=== PATIENT | female | born 1945 | race Caucasian/White ===

== ENCOUNTER 2021-07-08 12:09 | Emergency (ER) | payer MEDICARE, SELFPAY ==
--- NOTE | ~2021-07-08 | XR_ITS ---
XR_RIBSBI_CR DATE: 07/08/2021 12:45 INDICATION: Fall backwards in shower onto nondisplaced. Bilateral mid back pain. TECHNIQUE: 3 views of right ribs. 3 views of left ribs. COMPARISON: None FINDINGS: There is diffuse osteopenia. No left or right rib fracture is detected. Degenerative spurring and scoliosis of the thoracic and lumbar spine. Surgical clips, right axillary area consistent with right axillary node dissection Surgical clips, right upper quadrant, consistent with cholecystectomy. IMPRESSION: No rib fracture is detected Osteopenia Scoliosis and degenerative change of the thoracic and lumbar spine Reviewed, dictated and finalized at [facility]. Reviewed, dictated and finalized at [facility].
--- NOTE | 2021-07-08 12:13 | ED.BACK ---
HPI - Back Pain/Injury General Chief Complaint: Back Pain/Injury Stated Complaint: Fall Injury/Back Pain Time Seen by Provider: 07/08/21 12:14 Source: patient and RN notes reviewed History of Present Illness HPI Narrative: Patient is a 66-year-old female who presents the urgent care with complaints of back pain due to fall. Patient states that last Friday she got in the shower and slipped hitting her back on the faucet. Patient states that she has had increased pain with deep breathing. Patient has been taking Tylenol for the pain. Denies of hitting her head or any loss of consciousness. No other acute complaints. No acute distress noted. Patient aware of plan of care. Some parts of this dictation were generated by voice recognition software and may contain typographical and/or grammatical inaccuracies. Related Data Home Medications Medication Instructions Recorded Confirmed alprazolam 07/08/21 [id number] #[id number] D3 tablet PO 07/08/21 [ADVANCED Calcium] [id number] tablet 07/08/21 [Calcium Citrate + D with Mag] famotidine 07/08/21 hydrochlorothiazide 07/08/21 paroxetine HCl mg PO 07/08/21 propranolol 07/08/21 rivaroxaban [Xarelto] mg 07/08/21 Allergies Allergy/AdvReac Type Severity Reaction Status Date / Time latex Allergy Intermediate BLISTERS Verified 07/08/21 12:35 levofloxacin Allergy Intermediate LIPS SWELL Verified 07/08/21 12:35 Penicillins Allergy Intermediate HIVES Verified 07/08/21 12:35 Sulfa (Sulfonamide Allergy Intermediate HIVES Verified 07/08/21 12:35 Antibiotics) adhesive Allergy Mild RASH Verified 07/08/21 12:35 Review of Systems Review of Systems: CONSTITUTIONAL: Denies fever, chills, or sweats. EYES: Denies visual changes, redness, or discharge. ENT: Denies rhinorrhea, congestion, sore throat, or otalgia. CARDIOVASCULAR: Denies chest pain, palpitations, or edema. RESPIRATORY: Denies cough or dyspnea. GASTROINTESTINAL: Denies abdominal pain, nausea, vomiting, or diarrhea. GENITOURINARY: Denies dysuria or hematuria. SKIN: Denies rash or itching. MUSCULOSKELETAL: Reports of mid to upper back pain NEUROLOGIC: Denies headache, numbness, or weakness. All other systems reviewed are negative, except as documented in HPI. PMFSH Comments At the time of my signature, I reviewed and agree with the nursing past medical, surgical, social, and family history. There is no relevant family history pertinent to the patient complaint. Exam Narrative: GENERAL: This is a well-nourished, well-developed patient, in no apparent distress. HEAD: normocephalic, atraumatic. EYES: PERRL. Sclera clear/white. Vision is grossly intact. EARS: External ears normal NOSE: External nose normal with no obvious nasal discharge, nares without redness, no rhinorrhea. THROAT: Mucous membranes moist NECK: Neck supple CARDIOVASCULAR: Regular rate and rhythm without murmurs, gallops, or rubs. RESPIRATORY: Clear to auscultation. Breath sounds equal bilaterally. No wheezes, rales, or rhonchi. SKIN: warm, intact with no suspicious lesions or rash, good texture and turgor. NEURO: awake, alert, and oriented to person, place and time. There were no obvious focal neurologic abnormalities. EXTREMITIES: No clubbing, cyanosis, or edema. BACK: Mild to moderate right and left thoracic tenderness with notable bruising. No crepitus or step-off to spine. Course Course Level of Care: Express Care Visit Vital Signs Vital signs: Vital Signs Temperature 98.5 F 07/08/21 12:20 Pulse Rate 60 07/08/21 12:20 Respiratory Rate 07/08/21 12:20 Blood Pressure 125/69 07/08/21 12:20 Pulse Oximetry 98 07/08/21 12:20 Temperature 98.5 F 07/08/21 12:20 Pulse Rate 60 07/08/21 12:20 Respiratory Rate 20 07/08/21 12:20 Blood Pressure 125/69 07/08/21 12:20 Pulse Oximetry 98 07/08/21 12:20 Reviewed MDM - Back Pain/Injury MDM Narrative Medical decision making narrative:
[2021-07-08 12:20] VITALS: BP 125/69; PULSE 60; RESP 20; TEMP 36.9; O2SAT 98
== END 2021-07-08 13:15 | disposition home or self-care (01) ==
PROVIDERS: Emergency Provider Nurse Practitioner Family
DX: S20.229A Contusion of unspecified back wall of thorax, initial encounter (principal); W18.2XXA Fall in (into) shower or empty bathtub, initial encounter; I10 Essential (primary) hypertension; Z86.2 Personal history of diseases of the blood and blood-forming organs and certain disorders involving the immune mechanism
CPT/HCPCS: 71110; 99203; G0463

== ENCOUNTER 2023-07-09 18:55 | Emergency (ER) | payer MEDICARE, SELFPAY ==
[2023-07-09 19:05] VITALS: BP 149/70; PULSE 101; RESP 18; TEMP 36.6; O2SAT 97
--- NOTE | 2023-07-09 19:18 | ED.WOUNDLAC ---
HPI - Wound/Laceration General Chief Complaint: Wound/Laceration Stated Complaint: Skin Sore/Left Leg Source: patient Mode of arrival: ambulatory Limitations: no limitations History of Present Illness HPI narrative: 77-year-old female presented for complaint of ruptured blister to the back of the left leg. First noticed the filled blister about 4 days ago, it ruptured and has scabbed over. Denies pain, redness, swelling, or drainage at this time. States dtr wanted her to have it checked. Denies any other skin complaints. Related Data Home Medications Medication Instructions Recorded Confirmed alprazolam 0.25 mg tablet 0.25 mg PO TID PRN Anxiety 07/08/21 07/09/23 famotidine 20 mg tablet 20 mg PO DAILY 07/08/21 07/09/23 hydrochlorothiazide 12.5 mg tablet 12.5 mg PO DAILY 07/08/21 07/09/23 paroxetine HCl 10 mg tablet 10 mg PO DAILY 07/08/21 07/09/23 propranolol 80 mg tablet 80 mg PO DAILY 07/08/21 07/09/23 rivaroxaban 20 mg tablet (Xarelto) 20 mg PO DAILY 07/08/21 07/09/23 calcium citrate 500 mg-vitamin D3 1 tablet PO DAILY 07/09/23 07/09/23 12.5 mcg (500 unit) chewable tablet potassium 99 mg tablet 99 mg PO DAILY 07/09/23 07/09/23 Allergies Allergy/AdvReac Type Severity Reaction Status Date / Time latex Allergy Intermediate BLISTERS Verified 07/09/23 19:25 levofloxacin Allergy Intermediate LIPS SWELL Verified 07/09/23 19:25 Penicillins Allergy Intermediate HIVES Verified 07/09/23 19:25 Sulfa (Sulfonamide Allergy Intermediate HIVES Verified 07/09/23 19:25 Antibiotics) adhesive Allergy Mild RASH Verified 07/09/23 19:25 Review of Systems Review of Systems: CONSTITUTIONAL: Denies body aches, fever, chills, or sweats. CARDIOVASCULAR: Denies chest pain, palpitations, or edema. RESPIRATORY: Denies cough or dyspnea. GASTROINTESTINAL: Denies abdominal pain, nausea, vomiting, or diarrhea. SKIN: reports skin blister to leg MUSCULOSKELETAL: Denies back pain, joint pain, or myalgia. NEUROLOGIC: Denies headache, numbness, tingling, or weakness. PMFSH Comments At time of signature, I have reviewed and agree with nursing past medical, surgical, social and family history unless otherwise noted. Please see nursing chart for further information. There is no relevant family history pertinent to the presenting complaint Exam Narrative: GENERAL: Well-appearing EYES: conjunctivae clear, and EOMI. ENT: Mucous membranes moist. Oropharynx without edema, erythema or lesions. NECK: Supple. No lymphadenopathy CHEST: Clear to auscultation. HEART: Regular rate and rhythm. SKIN: Warm, dry. posterior left lower leg, 2.5x3cm diameter scabbed center of ruptured blister. No surrounding erythema/induration, tenderness, warmth or drainage. NEURO: Alert and oriented x3. Course Course Emergency Course: Patient is aware of diagnosis, understands and agrees to treatment plan. Anticipatory guidance given. Patient agrees to follow-up as directed and is aware of reasons to seek care at the emergency department. Portions of this record may have been created with voice recognition software Level of Care: Express Care Visit Vital Signs Vital signs: Vital Signs Temperature 97.9 F 07/09/23 19:05 Pulse Rate 101 H 07/09/23 19:05 Respiratory Rate 18 07/09/23 19:05 Blood Pressure 149/70 H 07/09/23 19:05 Pulse Oximetry 97 07/09/23 19:05 Oxygen Delivery Room Air 07/09/23 19:05 Temperature 97.9 F 07/09/23 19:05 Pulse Rate 101 H 07/09/23 19:05 Respiratory Rate 18 07/09/23 19:05 Blood Pressure 149/70 H 07/09/23 19:05 Pulse Oximetry 97 07/09/23 19:05 Oxygen Delivery Room Air 07/09/23 19:05 Reviewed MDM - Wound/Laceration MDM Narrative Medical decision making narrative: Discussed physical exam findings. No apparent infection. Will monitor. Dried skin from blister removed per pt request. Advised supportive measures and signs/symptoms to go to the ER. Pt is appropriate for outpt treatmen
== END 2023-07-09 19:30 | disposition home or self-care (01) ==
PROVIDERS: Emergency Provider Nurse Practitioner Family
DX: S80.822A Blister (nonthermal), left lower leg, initial encounter (principal); X58.XXXA Exposure to other specified factors, initial encounter; I10 Essential (primary) hypertension; K21.9 Gastro-esophageal reflux disease without esophagitis; Z86.718 Personal history of other venous thrombosis and embolism; Z86.2 Personal history of diseases of the blood and blood-forming organs and certain disorders involving the immune mechanism; Z85.038 Personal history of other malignant neoplasm of large intestine
CPT/HCPCS: 99212; G0463

== ENCOUNTER 2023-07-24 17:31 | Emergency (ER) | payer MEDICARE, SELFPAY ==
--- NOTE | 2023-07-24 17:39 | ED.GENADULT ---
HPI - General Adult General Stated complaint: Fall Injury/Head Injury Time Seen by Provider: 07/24/23 17:39 Source: patient, RN notes reviewed and old records reviewed Mode of arrival: ambulatory Limitations: no limitations History of Present Illness HPI narrative: 77-year-old female to Express Care status post fall with head trauma. Patient states that she had her grandson at an ice cream place this afternoon and that as they were leaving she missed the step down into the parking lot, causing her to fall face first onto concrete. Patient denies LOC, dizziness, weakness, visual changes, hearing changes, nausea, vomiting, neck pain. Patient endorses use of Xarelto for history of multiple clots. Patient reports that she fell at around 4:00 p.m. and that the staff at the ice cream place gave her ice and spoke with her for approximately 1 hour to make sure that she was okay prior to her leaving. patient reports that she broke her glasses during the fall. Patient states she was able to drive here without difficulty. Large, tennis ball sized hematoma noted to left upper forehead. Patient alert and oriented x3, neuro intact, no signs of acute distress. Related Data Home Medications Medication Instructions Recorded Confirmed alprazolam 0.25 mg tablet 0.25 mg PO TID PRN Anxiety 07/08/21 07/24/23 famotidine 20 mg tablet 20 mg PO DAILY 07/08/21 07/24/23 hydrochlorothiazide 12.5 mg tablet 12.5 mg PO DAILY 07/08/21 07/24/23 paroxetine HCl 10 mg tablet 10 mg PO DAILY 07/08/21 07/24/23 propranolol 80 mg tablet 80 mg PO DAILY 07/08/21 07/24/23 rivaroxaban 20 mg tablet (Xarelto) 20 mg PO DAILY 07/08/21 07/24/23 calcium citrate 500 mg-vitamin D3 1 tablet PO DAILY 07/09/23 07/24/23 12.5 mcg (500 unit) chewable tablet potassium 99 mg tablet 99 mg PO DAILY 07/09/23 07/24/23 Allergies Allergy/AdvReac Type Severity Reaction Status Date / Time latex Allergy Intermediate BLISTERS Verified 07/09/23 19:25 levofloxacin Allergy Intermediate LIPS SWELL Verified 07/09/23 19:25 Penicillins Allergy Intermediate HIVES Verified 07/09/23 19:25 Sulfa (Sulfonamide Allergy Intermediate HIVES Verified 07/09/23 19:25 Antibiotics) adhesive Allergy Mild RASH Verified 07/09/23 19:25 Review of Systems Review of Systems: All systems reviewed & are unremarkable except as noted in HPI and below Constitutional: Constitutional: Reports as per HPI, Denies fatigue and Denies weakness Eyes: Eyes: Reports as per HPI, Denies blind spots, Denies change in vision, Denies diplopia, Denies loss of peripheral vision, Denies seeing flashes, Denies spots in vision and Denies tunnel vision ENT: Reports as per HPI, Reports Normal hearing present and Denies neck pain Cardiovascular: Cardiovascular: Reports no additional cardiovascular complaints, Denies chest pain and Denies dyspnea Respiratory: Respiratory: Reports no additional respiratory complaints, Denies cough and Denies dyspnea Musculoskeletal: Musculoskeletal: Reports as per HPI, Denies abnormal gait, Denies muscle weakness, Denies neck pain, Denies numbness, Denies stiffness and Denies tingling Integumentary/Breasts: Skin/Breast: Reports system reviewed and no additional complaints, except as docu and Reports wounds Comments: tennis-ball sized hematoma to left upper forehead Neurologic: Reports as per HPI, Reports Normal hearing present, Denies Neuro-related abnormal movements, Denies Abnormal speech present, Denies abnormal gait, Denies confusion, Denies vertigo, Denies dizziness, Denies syncope, Denies loss of vision, Denies numbness, Denies Other visual disturbances, Denies Sensory deficit (Neuro), Denies tingling, Denies disequilibrium and Denies weakness Psychiatric: Psychiatric: Reports no additional psychiatric complaints PMFSH Comments At the time of my signature, I reviewed and agree with the nursing past medical, surgical, social, and family history. There is no relevant family history pertinent to
[2023-07-24 17:40] VITALS: BP 157/80; PULSE 64; RESP 16; TEMP 36.7; O2SAT 100
== END 2023-07-24 17:44 | disposition short-term general hospital (02) ==
PROVIDERS: Emergency Provider Nurse Practitioner Family
DX: S09.90XA Unspecified injury of head, initial encounter (principal); W10.9XXA Fall (on) (from) unspecified stairs and steps, initial encounter
CPT/HCPCS: 99213; G0463

== ENCOUNTER 2023-07-24 18:48 | Emergency (ER) | payer MEDICARE, SELFPAY ==
--- NOTE | ~2023-07-24 | CT_ITS ---
EXAMINATION: CT facial bones wo con DATE: 07/24/2023 19:23 INDICATION: facial injury . TECHNIQUE: Computed tomography (CT) of the facial bones and maxillofacial region was performed withou t intravenous contrast. Automated exposure control and iterative reconstruction technique were employ ed. The dose-length product was 681.00 mGy-cm. COMPARISON: None. FINDINGS: Soft Tissues: Large left frontal soft tissue swelling/hematoma with possible laceration.. Facial bones: No acute fracture. No lytic or blastic process. Old surgical changes at the right mast oid. Eyes: The globes are intact. The soft tissue planes of the orbits are maintained. Paranasal Sinuses: Left maxillary retention cyst/polyp, minimal right mastoid fluid, the remaining a erated spaces are clear. Foreign Bodies: No radiopaque foreign bodies. Other Findings: Cervical spondylosis. IMPRESSION: No evidence of acute facial bone fracture. Reviewed, dictated and finalized at [facility].
--- NOTE | ~2023-07-24 | CT_ITS ---
EXAMINATION: CT brain wo con DATE: 07/24/2023 19:23 INDICATION: head injury . TECHNIQUE: Computed tomography (CT) of the head was performed without intravenous contrast. The mA wa s adjusted according to patient size. Iterative reconstruction technique was employed. The dose-lengt h product was 681.00 mGy-cm. COMPARISON: None. FINDINGS: No acute intracranial hemorrhage or extra-axial fluid collection. No hydrocephalus, mass, or herniation. No acute ischemic infarct. Unremarkable dural venous sinus attenuation. No acute osseous abnormality. Large left frontal hematoma/laceration. Left maxillary retention cyst/polyp, mild right mastoid fluid, the remaining aerated spaces are clear . IMPRESSION: No acute intracranial process. Reviewed, dictated and finalized at [facility].
[2023-07-24 18:55] VITALS: BP 154/113; PULSE 64; RESP 19; TEMP 36.8; O2SAT 100
--- NOTE | 2023-07-24 19:24 | ED.GENADULT ---
HPI - General Adult General Chief complaint: Head Injury Stated complaint: fall,head injury on blood thinners Time Seen by Provider: 07/24/23 18:52 History of Present Illness HPI narrative: 77-year-old female presenting to the emergency department for evaluation for a hematoma resulting from a ground level fall. Patient reports she was getting ice cream and when she left the ice cream shop she missed the curb causing her to fall forward and strike her head. Patient states she was able to catch herself with her hand but did strike her head on the ground. Patient denies loss of consciousness. Patient denies any neck pain or back pain. Related Data Home Medications Medication Instructions Recorded Confirmed alprazolam 0.25 mg tablet 0.25 mg PO TID PRN Anxiety 07/08/21 07/24/23 famotidine 20 mg tablet 20 mg PO DAILY 07/08/21 07/24/23 hydrochlorothiazide 12.5 mg tablet 12.5 mg PO DAILY 07/08/21 07/24/23 paroxetine HCl 10 mg tablet 10 mg PO DAILY 07/08/21 07/24/23 propranolol 80 mg tablet 80 mg PO DAILY 07/08/21 07/24/23 rivaroxaban 20 mg tablet (Xarelto) 20 mg PO DAILY 07/08/21 07/24/23 calcium citrate 500 mg-vitamin D3 1 tablet PO DAILY 07/09/23 07/24/23 12.5 mcg (500 unit) chewable tablet potassium 99 mg tablet 99 mg PO DAILY 07/09/23 07/24/23 Allergies Allergy/AdvReac Type Severity Reaction Status Date / Time latex Allergy Intermediate BLISTERS Verified 07/24/23 18:49 levofloxacin Allergy Intermediate LIPS SWELL Verified 07/24/23 18:49 Penicillins Allergy Intermediate HIVES Verified 07/24/23 18:49 Sulfa (Sulfonamide Allergy Intermediate HIVES Verified 07/24/23 18:49 Antibiotics) adhesive Allergy Mild RASH Verified 07/24/23 18:49 Review of Systems Review of Systems: All systems reviewed & are unremarkable except as noted in HPI and below Exam Narrative: APPEARANCE: Well appearing, no pain, no distress, well-nourished. HEAD: Left forehead hematoma EYES: PERRLA/EOMI, conjunctivae clear. NOSE: Normal no drainage EARS:TMS clear with good light reflex. THROAT: Pharynx clear, no exudate. NECK: Supple. No adenopathy, no masses. RESPIRATORY: Airway patent, respirations nonlabored. Clear to auscultation bilaterally, no rales, rhonchi, wheezing. CARDIOVASCULAR: Regular rate and rhythm without murmurs rubs or gallops. ABDOMINAL: Soft, nontender, nondistended, normal bowel sounds MUSCULOSKELETAL: Moves all extremities. Strength/ROM intact, No edema, No calf tenderness. NEURO: Alert. Cranial nerves II through XII intact. Good gait. Good coordination SKIN: Warm, dry. Normal Color Course Vital Signs Vital signs: Vital Signs Temperature 98.2 F 07/24/23 18:55 Pulse Rate 64 07/24/23 18:55 Respiratory Rate 19 07/24/23 18:55 Blood Pressure 154/113 H 07/24/23 18:55 Pulse Oximetry 100 07/24/23 18:55 Oxygen Delivery Room Air 07/24/23 18:55 Temperature 98.2 F 07/24/23 18:55 Pulse Rate 64 07/24/23 18:55 Respiratory Rate 19 07/24/23 18:55 Blood Pressure 154/113 H 07/24/23 18:55 Pulse Oximetry 100 07/24/23 18:55 Oxygen Delivery Room Air 07/24/23 18:55 Medical Decision Making MDM Narrative Medical decision making narrative: 77-year-old female presented to the emergency department for evaluation for a head patient injury. Head and face CTs were negative for acute injury. Patient was updated on results of her workup patient was comfortable the plan for discharge and close follow-up. Differential Diagnosis Differential Diagnosis: Thirty who referred recall had fracture, subdural hematoma, subarachnoid hemorrhage Vital Signs Vital Signs: Vital Signs Temperature 98.2 F 07/24/23 18:55 Pulse Rate 64 07/24/23 18:55 Respiratory Rate 19 07/24/23 18:55 Blood Pressure 154/113 H 07/24/23 18:55 Pulse Oximetry 100 07/24/23 18:55 Oxygen Delivery Room Air 07/24/23 18:55 Temperature 98.2 F 07/24/23 18:55 Pulse Rate 64 07/24/23 18:55 Respiratory Rate 19
== END 2023-07-24 19:56 | disposition home or self-care (01) ==
PROVIDERS: Emergency Provider Emergency Medicine
DX: S00.83XA Contusion of other part of head, initial encounter (principal); Z79.01 Long term (current) use of anticoagulants; Z79.899 Other long term (current) drug therapy; W10.1XXA Fall (on)(from) sidewalk curb, initial encounter
CPT/HCPCS: 70450; 70486; 99284